=== PATIENT | male | born 1985 | race Caucasian/White ===

== ENCOUNTER 2017-08-06 10:40 | Emergency (ER) | payer OTHER ==
[~2017-08-06] VITALS: Ht 167.6 cm; Wt 92.2 kg
[~2017-08-06 10:40] MED LIST: CEPHALEXIN500 MG OR; CIPROFLOXACN500 MG PO; FLEXERIL OR; LORTAB 5 OR; LORTAB5 PO; NAPROSYN500 MG OR; PERCOCET 5/325M1 TAB OR; TRAMADOL HCL50 MG OR; VICOPROFEN PO
[2017-08-06] MEDS ORDERED: MEDDOSEPAK PO (11:16)
[2017-08-06 11:25] VITALS: BP 141/77
== END 2017-08-06 11:25 | disposition home or self-care (01) | DRG 607 ==
LOC: ED 10:40
DX: L25.3 Unspecified contact dermatitis due to other chemical products (principal)

== ENCOUNTER 2018-02-26 07:18 | Emergency (ER) | payer OTHER ==
[~2018-02-26] VITALS: Ht 167.6 cm; Wt 90.0 kg
[~2018-02-26 07:18] MED LIST changes: +MEDDOSEPAK PO
[2018-02-26 08:00] LABS: URINE BILIRUBIN - DIPSTICK NEGATIVE (NEGATIVE); URINE BLOOD DIPSTICK NEGATIVE (NEGATIVE); URINE COLOR YELLOW; URINE GLUCOSE - DIPSTICK NEGATIVE (NEGATIVE); URINE KETONE NEGATIVE (NEGATIVE); URINE LEUK ESTERASE NEGATIVE (NEGATIVE); URINE NITRITE - DIPSTICK NEGATIVE (Negative); URINE PROTEIN - DIPSTICK TRACE mg/dL (NEG-TRACE); URINE SPECIFIC GRAVITY 1.025; URINE UROBILINOGEN - DIPSTICK 0.2 E.U./dL (0.2)
[2018-02-26 08:01] LABS: URINE CLARITY CLEAR
[2018-02-26 08:04] LABS: HEMATOCRIT 47.2 % (39.0-50.0); IMMATURE GRANULOCYTES 0.5 % (0.0-5.0); MEAN CELL VOLUME 89.9 fL CALC (80.0-100.0); MEAN CORPUSCULAR HGB 30.5 pG CALC (26.0-32.0); MEAN CORPUSCULAR HGB CONC 33.9 g/L CALC (32.0-36.0); NEUT# 5.22 thou/uL (1.82-7.42); RED BLOOD COUNT 5.25 mill/uL (4.70-6.10); RED CELL DISTRI WIDTH 13.1 % (11.5-15.5)
[2018-02-26 08:26] LABS: ALBUMIN 4.5 g/dL (3.2-5.0); ALKALINE PHOSPHATASE 88 u/l (38-126); BILIRUBIN, TOTAL 0.3 mg/dL (0.0-1.4); BUN 13 mg/dL (9-20); BUN/CREATININE RATIO 13 (12-20 (CALC)); CHLORIDE 107 mmol/l (95-108); GFR > 60 ML/MIN (>=60 (CALC)); GFR FOR AFR.AMER. > 60 ML/MIN (>=60 (CALC)); SGOT/AST 26 u/l (17-59); SGPT/ALT 52 u/l (21-72); SODIUM 146 mmol/l (137-146); TOTAL PROTEIN 7.4 g/dL (6.3-8.2)
[2018-02-26 08:29] LABS: ANION GAP 15 (6-22 (CALC)); CARBON DIOXIDE 30 mmol/l (22-30); POTASSIUM 5.5 mmol/l (3.5-5.1)
[2018-02-26] MEDS ORDERED: TORADOL PO (08:56)
[2018-02-26] MEDS ORDERED: FLEXERIL PO (08:56)
[2018-02-26 09:16] VITALS: BP 138/89
== END 2018-02-26 09:16 | disposition home or self-care (01) ==
LOC: ED 07:18
PROVIDERS: Emergency Medicine
DX: N20.0 Calculus of kidney (principal); M54.9 Dorsalgia, unspecified; R10.32 Left lower quadrant pain; F17.210 Nicotine dependence, cigarettes, uncomplicated

== ENCOUNTER 2018-05-05 06:25 | Emergency (ER) | payer OTHER ==
[~2018-05-05] VITALS: Ht 167.6 cm; Wt 94.2 kg
[~2018-05-05 06:25] MED LIST changes: +FLEXERIL PO; +TORADOL PO
[2018-05-05 07:28] LABS: HEMATOCRIT 46.7 % (39.0-50.0); HEMOGLOBIN 15.7 g/dl (14.0-18.0); IMMATURE GRANULOCYTES 0.4 % (0.0-5.0); MEAN CELL VOLUME 89.1 fL CALC (80.0-100.0); MEAN CORPUSCULAR HGB CONC 33.6 g/L CALC (32.0-36.0); NEUT# 7.95 thou/uL (1.82-7.42); RED BLOOD COUNT 5.24 mill/uL (4.70-6.10); RED CELL DISTRI WIDTH 13.6 % (11.5-15.5)
[2018-05-05 07:29] LABS: URINE BILIRUBIN - DIPSTICK NEGATIVE (NEGATIVE); URINE BLOOD DIPSTICK TRACE-INTACT (NEGATIVE); URINE COLOR YELLOW; URINE GLUCOSE - DIPSTICK NEGATIVE (NEGATIVE); URINE KETONE NEGATIVE (NEGATIVE); URINE LEUK ESTERASE NEGATIVE (NEGATIVE); URINE NITRITE - DIPSTICK NEGATIVE (Negative); URINE PH 6.5 (4.5-8.0); URINE PROTEIN - DIPSTICK NEGATIVE (NEG-TRACE); URINE UROBILINOGEN - DIPSTICK 0.2 E.U./dL (0.2)
[2018-05-05 07:31] LABS: URINE CLARITY CLEAR
[2018-05-05 07:35] LABS: BARBITURATES NEGATIVE (NEGATIVE); COCAINE NEGATIVE (NEGATIVE); METHADONE NEGATIVE (NEGATIVE); OXCYCODONE NEGATIVE (NEGATIVE); TETRAHYDROCANNABIONOL NEGATIVE (NEGATIVE); TRICYLIC ANTIDEPRESSANTS NEGATIVE (NEGATIVE)
[2018-05-05 07:41] LABS: ALBUMIN 4.2 g/dL (3.2-5.0); ALKALINE PHOSPHATASE 125 u/l (38-126); BILIRUBIN, TOTAL 0.2 mg/dL (0.0-1.4); BUN 16 mg/dL (9-20); BUN/CREATININE RATIO 22 (12-20 (CALC)); CARBON DIOXIDE 26 mmol/l (22-30); CHLORIDE 104 mmol/l (95-108); CREATININE 0.8 mg/dL (0.7-1.3); GFR > 60 ML/MIN (>=60 (CALC)); GFR FOR AFR.AMER. > 60 ML/MIN (>=60 (CALC)); LIPASE 50 u/l (23-300); SGOT/AST 21 u/l (17-59); SODIUM 142 mmol/l (137-146)
[2018-05-05 07:42] LABS: ANION GAP 16 (6-22 (CALC)); POTASSIUM 4.2 mmol/l (3.5-5.1)
[2018-05-05 10:14] VITALS: BP 154/96
[2018-05-05] MEDS ORDERED: TORADOL PO (10:18)
== END 2018-05-05 10:33 | disposition home or self-care (01) ==
LOC: ED 06:25
PROVIDERS: Emergency Medicine
DX: R07.89 Other chest pain (principal); S22.43XD Multiple fractures of ribs, bilateral, subsequent encounter for fracture with routine healing
CPT/HCPCS: Q9967

== ENCOUNTER 2021-06-04 00:29 | Emergency (ER) | payer MEDICAID ==
[~2021-06-04] VITALS: Ht 167.6 cm; Wt 82.0 kg
[2021-06-04] MEDS ORDERED: AMOXICILLIN500 MG PO (00:41)
[2021-06-04] MEDS ORDERED: LORTAB 1010 MG PO (00:41)
[2021-06-04 01:06] VITALS: BP 154/97
== END 2021-06-04 01:13 | disposition home or self-care (01) ==
LOC: ED 00:29
DX: K04.7 Periapical abscess without sinus (principal); F17.200 Nicotine dependence, unspecified, uncomplicated